=== PATIENT | female | born 1945 | race Caucasian/White ===

== ENCOUNTER 2023-01-19 12:25 | Emergency (ER) | payer MEDICARE, OTHER ==
[~2023-01-19] VITALS: Ht 154.9 cm; Wt 59.0 kg
[2023-01-19 12:36] VITALS: BP 135/118
[2023-01-19] MEDS ORDERED: Bactrim Ds Tab1 EACH PO (15:13)
== END 2023-01-19 15:17 | disposition home or self-care (01) ==
LOC: ER 12:25
DX: L02.415 Cutaneous abscess of right lower limb (principal); Z88.0 Allergy status to penicillin
CPT/HCPCS: 10060; 99282-25